=== PATIENT | male | born 2000 | race Caucasian/White ===

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

== ENCOUNTER → 2019-06-06 | Outpatient (CLI) | payer MEDICAID ==
--- NOTE | 2019-06-06 23:18 | EKG REPORT ---
SEVERITY:- ABNORMAL ECG - SINUS TACHYCARDIA LAD, CONSIDER LEFT ANTERIOR FASCICULAR BLOCK : Confirmed by: Radha Kapoor MD 06-Jun-2019 23:17:56
== END ==
LOC: OD 17:03
PROVIDERS: ATTEND Pediatrics
DX: R94.31 Abnormal electrocardiogram [ECG] [EKG] (principal)
CPT/HCPCS: 93005; 93010

== ENCOUNTER 2019-06-19 12:07 | Emergency (ER) | payer OTHER, MEDICAID ==
[2019-06-19 12:25] VITALS: BP 139/73
--- NOTE | 2019-06-19 12:56 | ER Document Report ---
ED Psych Disorder / Suicide <FRENCH GANDHI - Last Filed: 06/19/19 18:11> - General TRAVEL OUTSIDE OF THE [place]. IN LAST 30 DAYS: No <DONNIE COWAN - Last Filed: 06/19/19 18:52> - General Chief Complaint: suicidal thoughts Stated Complaint: SUICIDAL IDEATION Time Seen by Provider: 06/19/19 12:31 Primary Care Provider: SUSANNE VALENCIA MD [Primary Care Provider] - Follow up as needed - [facility] Notes: 19-year-old male who identifies as a female presents to the emergency room for suicidal ideation in which patient wanted to run out into traffic, at the last minute decided not to mid back to the grass area as well as superficial cuts to bilateral forearms. Denies any homicidal ideation. Denies any overdosing of medications. Denies any fevers or chills. Denies any ingestion of medications. Eating and drinking without any issues. Denies fevers, chills, chest pain,palpitations, shortness of breath, dyspnea, nausea, vomiting, diarrhea, abdominal pain, hematuria,blurred vision, double vision, loss of vision, speech changes, LH, dizziness, syncope, headaches, wheezing, ST, URI, neck pain, weakness, bowel or bladder dysfunction, saddle anesthesia, numbness or tingling in bilateral upper or lower extremities equally, muscle paralysis, weakness in bilateral upper or lower extremities equally or rash. Awaiting for mental health to consult patient (DONNIE COWAN) - Related Data Allergies/Adverse Reactions: No Known Allergies Allergy (Unverified 04/04/17 22:50) Past Medical History - General Information source: Patient - Social History Smoking Status: Never Smoker Chew tobacco use (# tins/day): No Frequency of alcohol use: Occasional Drug Abuse: None Family History: Reviewed & Not Pertinent Patient has suicidal ideation: Yes Patient has homicidal ideation: No Renal/ Medical History: Denies: Hx Peritoneal Dialysis - Immunizations Immunizations up to date: Yes Hx Diphtheria, Pertussis, Tetanus Vaccination: Yes <DONNIE COWAN - Last Filed: 06/19/19 18:52> Review of Systems - Review of Systems Constitutional: No symptoms reported EENT: No symptoms reported Cardiovascular: No symptoms reported Respiratory: No symptoms reported Gastrointestinal: No symptoms reported Genitourinary: No symptoms reported Male Genitourinary: No symptoms reported Musculoskeletal: No symptoms reported Skin: No symptoms reported Hematologic/Lymphatic: No symptoms reported Neurological/Psychological: See HPI <DONNIE COWAN - Last Filed: 06/19/19 18:52> Physical Exam <DONNIE COWAN - Last Filed: 06/19/19 18:52> - Vital signs Vitals: Temp Pulse Resp BP Pulse Ox 98.6 F 89 20 139/73 H 99 06/19/19 12:23 06/19/19 12:23 06/19/19 12:23 06/19/19 12:23 06/19/19 12:23 - Notes Notes: PHYSICAL EXAMINATION:reviewed vital signs by RN GENERAL: Well-appearing, well-nourished and in no acute distress. HEAD: Atraumatic, normocephalic. EYES: Pupils equal round and reactive to light, extraocular movements intact, sclera anicteric, conjunctiva are normal. ENT: Nares patent, oropharynx clear without exudates. Moist mucous membranes. NECK: Normal range of motion, supple without lymphadenopathy LUNGS: Breath sounds clear to auscultation bilaterally and equal. No wheezes rales or rhonchi. HEART: Regular rate and rhythm without murmurs ABDOMEN: Soft, nontender, nondistended abdomen. No guarding, no rebound. No masses appreciated. Musculoskeletal: Normal range of motion, no pitting or edema. No cyanosis. NEUROLOGICAL: Cranial nerves grossly intact. Normal speech, normal gait. Nor mal sensory, motor exams PSYCH: Normal mood, normal affect. wearing foundation, lipstick and eyeshadow SKIN: Warm, Dry, normal turgor, no rashes or lesions noted. Bilateral superficial scratches to forearms (DONNIE COWAN) Course - Laboratory Result Diagrams: 06/19/19 13:29 06/19/19 13:29 <FRENCH GANDHI - Last Filed: 06/19/19 18:11> - Laboratory Result Diagrams: 06/19/19 13:29 06/19/19 13:29 <DONNIE COWAN - Last Filed: 06/19/19 18:52> - Re-evaluation Re-evalutation: 06/19/19 14:19 Labs are unremarkable. Patient is not in any state of crisis, eating lunch when this provider came into the room, pleasant and conversational. Patient did have bilateral scratches to forearms that were superficial. Vital signs stable. Awaiting for mental health consult on patient. Patient cleared by mental health for suicidal ideation, felt that it was attention seeking, no real plan, was meant to scare his father. Patient admitted this to mental health.1849-mobile crisis here to collect patient bring home with father. Patient verbalized understanding of this plan of care and agree with plan of care. Patient is under no intoxication cognizant of making decision that he would like to leave and go home with his father and mobile crisis. Patient adamantly denies any suicidal ideation or homicidal ideation. (DONNIE COWAN) - Vital Signs Vital signs: Temp Pulse Resp BP Pulse Ox 98.6 F 89 20 139/73 H 99 06/19/19 12:23 06/19/19 12:23 06/19/19 12:23 06/19/19 12:23 06/19/19 12:23 - Laboratory Laboratory results interpreted by me: 06/19/19 13:29 Salicylates < 1.0 L Acetaminophen < 10 L Discharge <FRENCH GANDHI - Last Filed: 06/19/19 18:11> <DONNIE COWAN - Last Filed: 06/19/19 18:52> - Discharge Clinical Impression: Suicidal comment and gesture, Autism Condition: Stable Disposition: HOME, SELF-CARE Additional Instructions: You have been evaluated both medical and behavioral health teams and have been deemed appropriate for discharge. You are encouraged to follow through with your medication management appointment tomorrow with LINO Engel. A referral to [facility] has been submitted. You have been provided a copy of this referral. If you have not heard from them in 3 business days please contact them; intact information is attached to the referral. AT ANY TIME, IF YOUR SYMPTOMS CHANGE SIGNIFICANTLY OR WORSEN OR YOU DEVELOP NEW SYMPTOMS, RETURN TO THE EMERGENCY DEPARTMENT IMMEDIATELY FOR RE-EVALUATION. Referrals: SUSANNE VALENCIA MD [Primary Care Provider] - Follow up as needed
[2019-06-19 13:46] LABS: ABSOLUTE EOSINOPHILS # (AUTO) 0.1 10^3/uL (0.0-0.6); ABSOLUTE MONOCYTES (AUTO) 0.7 10^3/uL (0.1-1.4); ABSOLUTE NEUT (AUTO) 3.1 10^3/uL (1.7-8.2); BASOPHILS % (AUTO) 0.5 % (0-2); EOSINOPHILS % (AUTO) 2.4 % (0-6); HEMOGLOBIN 14.6 g/dL (13.5-17.0); LYMPHOCYTES % (AUTO) 33.8 % (13-45); MEAN CORPUSCULAR HEMOGLOBIN 29.9 pg (27.0-33.4); MEAN CORPUSCULAR HGB CONC 34.7 g/dL (32.0-36.0); MEAN CORPUSCULAR VOLUME 86 fl (80-97); MONOCYTES % (AUTO) 11.2 % (3-13); PLATELET COUNT 207 10^3/uL (150-450); RED BLOOD COUNT 4.87 10^6/uL (4.35-5.55); RED CELL DISTRIBUTION WIDTH 12.4 % (11.5-14.0); SEGMENTED NEUTROPHILS % (AUTO) 52.1 % (42-78); TOTAL CELLS COUNTED % (AUTO) 100 %; WHITE BLOOD COUNT 5.9 10^3/uL (4.0-10.5)
[2019-06-19 13:47] LABS: APPEARANCE,URINE CLEAR; BILIRUBIN,URINE NEGATIVE (NEGATIVE); COLOR,URINE STRAW; GLUCOSE, URINE NEGATIVE (NEGATIVE); KETONES,URINE NEGATIVE (NEGATIVE); LEUKOCYTE ESTERASE,URINE NEGATIVE (NEGATIVE); NITRITE,URINE NEGATIVE (NEGATIVE); PROTEIN,URINE NEGATIVE (NEGATIVE); URINE SPECIFIC GRAVITY 1.008; UROBILINOGEN,URINE NEGATIVE mg/dL (<2.0)
[2019-06-19 14:03] LABS: ALBUMIN 4.2 g/dL (3.5-5.0); ALKALINE PHOSPHATASE 98 U/L (38-126); ANION GAP 7 (5-19); ASPARTATE AMINO TRANSFERASE 28 U/L (17-59); BILIRUBIN,DIRECT 0.1 mg/dL (0.0-0.4); BILIRUBIN,TOTAL 0.3 mg/dL (0.2-1.3); BLOOD UREA NITROGEN 14 mg/dL (7-20); CALCIUM 9.8 mg/dL (8.4-10.2); CARBON DIOXIDE 29 mmol/L (22-30); CHLORIDE 104 mmol/L (98-107); GLUCOSE 98 mg/dL (75-110); TOTAL PROTEIN 7.7 g/dL (6.3-8.2)
[2019-06-19 14:04] LABS: ACETAMINOPHEN < 10 ug/mL (10-30); ALCOHOL < 10 mg/dL (NONE DETECTED); SALICYLATE < 1.0 mg/dL (2.0-20.0)
[2019-06-19 14:06] LABS: URINE AMPHETAMINES SCREEN NEGATIVE; URINE BARBITURATES SCREEN NEGATIVE; URINE BENZODIAZEPINES SCREEN NEGATIVE; URINE COCAINE SCREEN NEGATIVE; URINE MARIJUANA (THC) SCREEN NEGATIVE; URINE METHADONE SCREEN NEGATIVE; URINE PHENCYCLIDINE SCREEN NEGATIVE
--- NOTE | 2019-06-20 07:15 | EKG REPORT ---
SEVERITY:- ABNORMAL ECG - SINUS RHYTHM LAD, CONSIDER LEFT ANTERIOR FASCICULAR BLOCK : Confirmed by: Bessie Gleason 20-Jun-2019 07:15:08
== END 2019-06-19 19:12 | disposition home or self-care (01) ==
LOC: ER 12:07
DX: R45.851 Suicidal ideations (principal); F84.0 Autistic disorder; S50.812A Abrasion of left forearm, initial encounter; S50.811A Abrasion of right forearm, initial encounter; X58.XXXA Exposure to other specified factors, initial encounter
CPT/HCPCS: 36415; 80053; 80307; 81001; 85025; 93005; 93010